=== PATIENT | female | born 1985 | race Asian ===

== ENCOUNTER 2017-09-14 11:53 | Emergency (ER) | payer BC ==
[~2017-09-14] VITALS: Ht 167.6 cm; Wt 49.3 kg
[2017-09-14 12:14] VITALS: TEMP 37; Ht 167.6 cm; Wt 49.3 kg
--- NOTE | 2017-09-14 13:33 | EMERGENCY ROOM VISIT NOTE ---
History Report prepared by Homer: Raulito Zhou Under the Supervision of: Dr. Sammi Finney M.D. First contact with patient: 13:15 Chief Complaint: ED VAG BLEEDING Stated Complaint: 1 MONTH PREG. W/UNKNOWN BLEEDING History of Present Illness The patient is a 32 year old female who presents to the Emergency Room with complaints of persistent vaginal bleeding that started 3 weeks ago. She says that at first, she thought it was period bleeding, but the bleeding continued. The patient notes that the blood is dark red and is sometimes brown. She says that she saw her family doctor 3 days ago due to the bleeding, and was found to be 1-month . The patient states that she has no chronic medical conditions. Source of History: patient Onset: 3 weeks ago Position: other (vaginal) Quality: other (bleeding - dark red, brown) Timing: other (persistent) Note: Associated symptoms: 1-month . Review of Systems See HPI for pertinent positives & negatives. A total of 10 systems reviewed and were otherwise negative. Past Medical & Surgical Medical Problems: (1) No chronic diseases present Family History No pertinent family history Social History Smoking Status: Never Smoker Housing Status: lives with family Occupation Status: employed Current/Historical Medications No Active Prescriptions or Reported Meds Allergies Coded Allergies: No Known Allergies (Unverified , 09/14/17) Physical Exam Vital Signs Date Time Temp Pulse Resp B/P (MAP) Pulse Ox O2 Delivery O2 Flow Rate FiO2 09/14/17 17:58 68 99/65 97 09/14/17 15:59 67 98/65 98 Room Air 09/14/17 14:10 68 14 96/71 98 Room Air 09/14/17 12:14 37.0 83 18 97/72 98 Room Air Physical Exam Vital signs reviewed. General: Well-appearing 32 year old female, in no significant distress. HEENT: No scleral icterus, PERRLA, neck supple. Atraumatic. Cardiovascular: Regular rate and rhythm, no extra sounds. Pulmonary: Clear to auscultation bilaterally, normal work of breathing. Abdomen: Soft, nontender, nondistended, positive bowel sounds. Musculoskeletal: Atraumatic, no peripheral edema. Neurologic: Patient awake alert and oriented x 3 Skin: Warm, dry, no rash Medical Decision & Procedures ER Provider Diagnostic Interpretation: US results as stated below per my review and radiologist interpretation: ECTOPIC ULTRASOUND (transabdominal and endovaginal scanning) CLINICAL HISTORY: . Vaginal bleeding. COMPARISON STUDY: No previous studies for comparison. FINDINGS: The uterus measured 10 x 5.8 x 7.7 cm. And intrauterine gestational sac was visualized. A 3 mm yolk sac was visualized. An embryonic pole measuring 5 mm was identified. This corresponds to an estimated postmenstrual age of 6 weeks and 1 day. No cardiac activity was visualized at this time. There is a subchorionic hematoma. The left ovary measured 36 x 17 x 31 mm a contained a 23 mm follicle. The right ovary measured 47 x 23 x 31 mm and contained a complex 25 mm focus, possibly representing a hemorrhagic corpus luteum cyst. There is a small amount of fluid within the endocervical canal. IMPRESSION: 1. Single intrauterine gestation with estimated postmenstrual age of 6 weeks and 1 day. 2. Subchorionic hematoma 3. No embryonic cardiac activity was visualized at this time. Short-term ultrasonographic follow-up is therefore recommended. Electronically signed by: Raul Rodrigues M.D. 09/14/2017 4:11 PM Dictated Date/Time: 09/14/2017 4:08 PM Laboratory Results 09/14/17 13:39 Red Blood Count 4.40, Mean Corpuscular Volume 88.6, Mean Corpuscular Hemoglobin 30.9, Mean Corpuscular Hemoglobin Concent 34.9, Mean Platelet Volume 9.2, Neutrophils (%) (Auto) 70.4, Lymphocytes (%) (Auto) 19.0, Monocytes (%) (Auto) 8.2, Eosinophils (%) (Auto) 1.7, Basophils (%) (Auto) 0.5, Neutrophils # (Auto) 9.82, Lymphocytes # (Auto) 2.64, Monocytes # (Auto) 1.14, Eosinophils # (Auto) 0.23, Basophils # (Auto) 0.07 09/14/17 13:39 Test 09/14/17 13:39 09/14/17 13:40 White Blood Count 13.93 K/uL (4.8-10.8) Red Blood Count 4.40 M/uL (4.2-5.4) Hemoglobin 13.6 g/dL (12.0-16.0) Hematocrit 39.0 % (37-47) Mean Corpuscular Volume 88.6 fL (80-100) Mean Corpuscular Hemoglobin 30.9 pg (25-34) Mean Corpuscular Hemoglobin Concent 34.9 g/dl (32-36) Platelet Count 294 K/uL (130-400) Mean Platelet Volume 9.2 fL (7.4-10.4) Neutrophils (%) (Auto) 70.4 % Lymphocytes (%) (Auto) 19.0 % Monocytes (%) (Auto) 8.2 % Eosinophils (%) (Auto) 1.7 % Basophils (%) (Auto) 0.5 % Neutrophils # (Auto) 9.82 K/uL (1.4-6.5) Lymphocytes # (Auto) 2.64 K/uL (1.2-3.4) Monocytes # (Auto) 1.14 K/uL (0.11-0.59) Eosinophils # (Auto) 0.23 K/uL (0-0.5) Basophils # (Auto) 0.07 K/uL (0-0.2) RDW Standard Deviation 40.5 fL (36.4-46.3) RDW Coefficient of Variation 12.6 % (11.5-14.5) Immature Granulocyte % (Auto) 0.2 % Immature Granulocyte # (Auto) 0.03 K/uL (0.00-0.02) Anion Gap 7.0 mmol/L (3-11) Est Creatinine Clear Calc Drug Dose 136.6 ml/min Estimated GFR () > 150.0 Estimated GFR (Non- 131.6 BUN/Creatinine Ratio 19.1 (10-20) Calcium Level 9.5 mg/dl (8.5-10.1) Total Bilirubin 0.4 mg/dl (0.2-1) Direct Bilirubin 0.1 mg/dl (0-0.2) Aspartate Amino Transf (AST/SGOT) 12 U/L (15-37) Alanine Aminotransferase (ALT/SGPT) 14 U/L (12-78) Alkaline Phosphatase 46 U/L (45-117) Total Protein 8.2 gm/dl (6.4-8.2) Albumin 4.2 gm/dl (3.4-5.0) Progesterone Level 13.00 ng/mL Human Chorionic Gonadotropin, Quant 56736 mIU/mL Urine Color YELLOW Urine Appearance CLEAR (CLEAR) Urine pH 5.5 (4.5-7.5) Urine Specific [place] 1.020 (1.000-1.030) Urine Protein NEG (NEG) Urine Glucose (UA) NEG (NEG) Urine Ketones NEG (NEG) Urine Occult Blood NEG (NEG) Urine Nitrite NEG (NEG) Urine Bilirubin NEG (NEG) Urine Urobilinogen NEG (NEG) Urine Leukocyte Esterase NEG (NEG) Laboratory results per my review. ED Course 1327: Past medical records reviewed. The patient was evaluated in room C2B. A complete history and physical examination was performed. 1724: Upon reevaluation, the patient appeared to have improvement of her symptoms. I discussed findings with her. She verbalized agreement of the treatment plan. She was discharged home. Medical Decision Differential diagnosis: Etiologies such as ectopic , dysfunction uterine bleeding, bleeding dyscrasia, trauma, infection, as well as others were entertained. This patient was evaluated and appeared to be in no significant distress. IV access was obtained and laboratory work was drawn. Patient was placed on the shelter monitor and hydrated with normal saline solution. Ultrasound of the pelvis was performed and reveals a gestational sac. Beta Quant hCG is 36,000. Patient's Rh+. She has scheduled an appointment with [facility] but has not established with them yet for care. She will follow with her PCP early this week for repeat laboratory work and ultrasound. The patient has been were advised of the findings and given instructions. Patient will return to the ER for worsening of symptoms or any medical concerns. Medication Reconcilliation Current Medication List: was personally reviewed by me Blood Pressure Screening Patient's blood pressure: Normal blood pressure Impression Primary Impression: Threatened in first trimester Scribe Attestation The scribe's documentation has been prepared under my direction and personally reviewed by me in its entirety. I confirm that the note above accurately reflects all work, treatment, procedures, and medical decision making performed by me. Departure Information Dispostion Home / Self-Care Prescriptions No Active Prescriptions or Reported Meds Referrals Vamsi Solano M.D. (PCP) Patient Instructions Bleeding Early Preg, My [facility] Additional Instructions Diagnosis: Threatened Please drink plenty of clear fluids. Continue with a daily vitamin. Pelvic rest (no sex, no tampons) Follow-up with your primary care physician next week for repeat laboratory work and ultrasound. You may also see [facility] if you're able to schedule an appointment. Return to the emergency department for worsening of symptoms, heavy vaginal bleeding or any medical concerns.
[2017-09-14 13:49] LABS: BASO % 0.5 %; BASO ABS # 0.07 K/uL (0-0.2); COMPLETE YES; EOS % 1.7 %; IG% 0.2 %; LYMPH ABS # 2.64 K/uL (1.2-3.4); MEAN CELL VOLUME 88.6 fL (80-100); MEAN CORPUSCULAR HEMOGLOBIN 30.9 pg (25-34); MEAN CORPUSCULAR HGB CONC 34.9 g/dl (32-36); MEAN PLATELET VOLUME 9.2 fL (7.4-10.4); MONO % 8.2 %; NEUT % 70.4 %; PLATELET COUNT 294 K/uL (130-400); WHITE BLOOD COUNT 13.93 K/uL (4.8-10.8)
[2017-09-14 14:16] LABS: ALT/SGPT 14 U/L (12-78); BLOOD UREA NITROGEN 9 mg/dl (7-18); BUN/CREATININE RATIO 19.1 (10-20); CALCIUM 9.5 mg/dl (8.5-10.1); CARBON DIOXIDE 25 mmol/L (21-32); CHLORIDE 104 mmol/L (98-107); CREATININE 0.46 mg/dl (0.60-1.20); GLUCOSE 78 mg/dl (70-99); POTASSIUM 3.6 mmol/L (3.5-5.1); SODIUM 136 mmol/L (136-145)
[2017-09-14 14:19] LABS: ALKALINE PHOSPHATASE 46 U/L (45-117); AST/SGOT 12 U/L (15-37)
[2017-09-14 14:28] LABS: URINE APPEARANCE CLEAR (CLEAR); URINE BILIRUBIN NEG (NEG); URINE COLOR YELLOW; URINE NITRITE NEG (NEG); URINE PH 5.5 (4.5-7.5); UROBILINOGEN NEG (NEG); ZZUR CULT IF INDIC CLEAN CATCH NO
[2017-09-14 14:33] LABS: MANUAL MICROSCOPIC REQUIRED? NO; REVIEW REQ? NO
--- NOTE | 2017-09-14 16:13 | DIAGNOSTIC IMAGING REPORT ---
ECTOPIC ULTRASOUND (transabdominal and endovaginal scanning) CLINICAL HISTORY: . Vaginal bleeding. COMPARISON STUDY: No previous studies for comparison. FINDINGS: The uterus measured 10 x 5.8 x 7.7 cm. And intrauterine gestational sac was visualized. A 3 mm yolk sac was visualized. An embryonic pole measuring 5 mm was identified. This corresponds to an estimated postmenstrual age of 6 weeks and 1 day. No cardiac activity was visualized at this time. There is a subchorionic hematoma. The left ovary measured 36 x 17 x 31 mm a contained a 23 mm follicle. The right ovary measured 47 x 23 x 31 mm and contained a complex 25 mm focus, possibly representing a hemorrhagic corpus luteum cyst. There is a small amount of fluid within the endocervical canal. IMPRESSION: 1. Single intrauterine gestation with estimated postmenstrual age of 6 weeks and 1 day. 2. Subchorionic hematoma 3. No embryonic cardiac activity was visualized at this time. Short-term ultrasonographic follow-up is therefore recommended. Electronically signed by: Raul Rodrigues M.D. 09/14/2017 4:11 PM Dictated Date/Time: 09/14/2017 4:08 PM
[2017-09-14 17:58] VITALS: BP 99/65; PULSE 68; O2SAT 97
== END 2017-09-14 17:59 | disposition home or self-care (01) ==
LOC: C.EDB 11:55 → C.EDC 17:59
DX: O20.0 Threatened abortion (principal)